=== PATIENT | male | born 1985 | race Caucasian/White ===

== ENCOUNTER 2018-10-21 17:54 | Inpatient (IN) | payer MEDICAID ==
[~2018-10-21] VITALS: Ht 165.1 cm; Wt 78.8 kg
[2018-10-21] MEDS ORDERED: SOD CHLORIDE 0.9% 1,000 ML IV STA (18:36)
[2018-10-21] MEDS ORDERED: LORAZEPAM 2 MG INJ IV STA (18:36)
[2018-10-21] MEDS ORDERED: LORAZEPAM 2 MG INJ IV ONE ×2 (21:00→22:30)
[2018-10-21] MEDS ORDERED: CHLORDIAZEPOXIDE 25 MG CAP PO ONE (22:30)
[2018-10-21] MEDS ORDERED: ONDANSETRON 4 MG INJ IV PRN ×2 (23:00→23:30)
[2018-10-21] MEDS ORDERED: ACETAMINOPHEN 325 MG TAB PO PRN ×2 (23:00→23:30)
[2018-10-21] MEDS ORDERED: DOCUSATE SODIUM 100 MG CAP PO PRN (23:30)
[2018-10-21] MEDS ORDERED: NACL 0.9% 3 ML SYG IV SCH (23:30)
[2018-10-21] MEDS ORDERED: LORAZEPAM 2 MG INJ IV PRN (23:30)
[2018-10-21] MEDS ORDERED: BISACODYL (EC) 5 MG TAB PO PRN (23:30)
--- NOTE | 2018-10-21 23:53 | HP ---
Date/Time of Note Date/Time of Note DATE: 10/21/18 TIME: 23:53 Assessment/Plan VTE Prophylaxis SCD applied (from Ns): Yes Pharmacological prophylaxis: NA/contraindicated Pharm contraindication: low risk/ambulating Assessment/Plan Hospital Course This is a 33-year-old male being admitted to the ICU floor for: #1 suspect delirium with alcoholic hallucinosis: While patient's vital signs are stable, the suspicion at the current time is that the patient is experiencing hallucinations and symptoms of alcohol withdrawal. There is no reported psychiatric history. CT scan of the head without contrast will be ordered once the patient is stabilized/calm down. In the meantime we will continue treating with diazepam 3 mg IV every 2 hours. Librium taper. Banana bag daily. Urine drug screen and ethanol level were negative. Given that the patient is requiring close observation as well as frequent benzodiazepine administration the patient will be admitted to the ICU in the meantime. #2 transaminitis: Likely secondary to underlying alcohol use. Once patient is more stable we will need to obtain a right upper quadrant ultrasound, I will defer this to the day team. #3 DVT GI prophylaxis: SCDs, Protonix Further treatment strategy will be implemented as per the clinical course Greater than 45 minutes of critical care time was spent on the care and management of this patient. Result Diagram: 10/21/18 1830 10/21/18 1830 Results 24hrs Laboratory Tests Test 10/21/18 18:00 10/21/18 18:30 10/21/18 18:53 Creatine Kinase 918 H Creatine Kinase Index 0.4 Creatinine Kinase MB (Mass) 3.40 H Troponin I 0.013 White Blood Count 5.4 Red Blood Count 4.10 L Hemoglobin 13.4 L Hematocrit 40.2 L Mean Corpuscular Volume 98.0 Mean Corpuscular Hemoglobin 32.7 Mean Corpuscular 33.3 Hemoglobin Concent Red Cell Distribution Width 13.5 Platelet Count 106 L Mean Platelet Volume 10.5 H Immature Granulocytes % 0.200 Neutrophils % Segmented Neutrophils 54 % (Manual) Band Neutrophils % (Manual) 3 Lymphocytes % Lymphocytes % (Manual) 32 Monocytes % Monocytes % (Manual) 9 Eosinophils % Eosinophils % (Manual) 1 Basophils % Promyelocytes % (Manual) 1 H Nucleated Red Blood Cells % 1 H Immature Granulocytes # 0.010 Neutrophils # Neutrophils # (Manual) 2.9 Band Neutrophils # 0.1 Lymphocytes (Manual) 1.7 Lymphocytes # Monocytes # Monocytes # (Manual) 0.4 Eosinophils # Basophils # Promyelocytes # 0.0 Nucleated Red Blood Cells # Platelet Estimate DECREASED Giant Platelets 1 H Polychromasia 1+ Urine Color JOSIAH Urine Clarity SLIGHTLY CLOUDY A Urine pH 5.0 Urine Specific [place] 1.034 H Urine Ketones TRACE A Urine Nitrite NEGATIVE Urine Bilirubin NEGATIVE Urine Urobilinogen 2+ H Urine Leukocyte Esterase NEGATIVE Urine Microscopic RBC 1 Urine Microscopic WBC 2 Urine Bacteria FEW A Urine Mucus MANY A Urine Hemoglobin NEGATIVE Urine Glucose NEGATIVE Urine Total Protein 2+ H Sodium Level 142 Potassium Level 3.5 Chloride Level 103 Carbon Dioxide Level 25 Anion Gap 14 H Blood Urea Nitrogen 14 Creatinine 0.83 Est Glomerular Filtrat > 60 Rate mL/min Glucose Level 106 Calcium Level 9.6 Total Bilirubin 0.8 Direct Bilirubin 0.00 Indirect Bilirubin 0.8 Aspartate Amino 139 H Transf (AST/SGOT) Alanine 48 Aminotransferase (ALT/SGPT) Alkaline Phosphatase 183 H Total Protein 10.1 H Albumin 4.7 Globulin 5.40 H Albumin/Globulin Ratio 0.87 Urine Opiates Screen Negative Urine Barbiturates Negative Urine Amphetamines Screen Negative Urine Benzodiazepines Screen Negative Urine Cocaine Screen Negative Urine Cannabinoids Negative Ethyl Alcohol Level < 10.0 H Bedside Glucose 107 HPI/ROS Admit Date/Time Admit Date/Time Hx of Present Illness Chief complaint: Brought in by family with complaints of hallucinations, heavy alcohol drinker with lasting 7 days ago History was obtained from the ED physician as well as the family at the bedside as the patient was delirious and confused and unable to provide history This is a 33-year-old male with a history of alcoholism brought in by family for hallucinations. As per the family at the bedside the patient was reportedly having problems with his at home secondary to his alcoholism and she wanted him to stop drinking in order to help save the relationship. He last drank approximately 7 days ago.. Early yesterday he started having hallucinations and he was shaky all week long. At home apparently he was having hallucinations that he had bugs on him and he kept taking showers to clean himself. Patient was not reporting any chest pain or nausea vomiting or any headaches. Upon my examination of the patient at the bedside he did not appear to be in any respiratory distress. His vital signs were stable. Patient however was confused and trying to get out of bed. He was not diaphoretic. He did appear to be hallucinating as well. He did receive a total of 3 mg of Ativan prior to me seeing the patient. 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 Patient was given another dose of Ativan as well as Haldol which only for short period of time relieve some of his agitation. He was given 5 mg of IV diazepam which did subsequently result in sedation. Allergies: NKDA Medications: See MAR ROS Subjective hx not possible: other (Delirium) PMH/Family/Social Past Medical History Alcohol abuse Medications Current Medications Ondansetron HCl (Zofran Inj) 4 mg ER BRIDGE PRN IV NAUSEA/VOMITING; Start 10/21/18 at 23:00; Stop 10/22/18 at 22:59 Acetaminophen (Tylenol Tab) 650 mg ER BRIDGE PRN PO .MILD PAIN 1-3 OR TEMP; Start 10/21/18 at 23:00; Stop 10/22/18 at 22:59 Multivitamins 10 ml/Thiamine HCl 100 mg/Folic Acid 1 mg/Sodium Chloride 1,011.2 ml @ 125 mls/ hr DAILY@09 IVPB ; Start 10/22/18 at 09:00 IV Flush (NS 3 ml) 3 ml PER PROTOCOL IV ; Start 10/21/18 at 23:30 Ondansetron HCl (Zofran Inj) 4 mg Q6H PRN IV NAUSEA/VOMITING; Start 10/21/18 at 23:30 Acetaminophen (Tylenol Tab) 650 mg Q6H PRN PO .PAIN 1-3 OR TEMP; Start 10/21/18 at 23:30 Docusate Sodium (Colace) 100 mg Q12H PRN PO .CONSTIPATION; Start 10/21/18 at 23:30 Bisacodyl (Dulcolax) 5 mg DAILY PRN PO .CONSTIPATION; Start 10/21/18 at 23:30 Lorazepam (Ativan) 2 mg ONCE ONCE IV ; Start 10/22/18 at 00:00; Stop 10/22/18 at 00:01 Haloperidol (Haldol) 5 mg ONCE ONCE IM ; Start 10/22/18 at 00:00; Stop 10/22/18 at 00:01 Coded Allergies: No Known Allergy (Unverified , 10/22/18) Past Surgical History Left arm surgery Family History Significant Family History: no pertinent family hx Social History Alcohol Use: heavy Smoking Status: Unknown if ever smoked Drug Use: none Exam/Review of Systems Vital Signs Vitals Vital Signs Date Temp Pulse Resp B/P (MAP) Pulse Ox O2 O2 Flow FiO2 Time Delivery Rate 10/21/18 98.7 76 18 133/92 98 Room Air 22:00 (106) Exam Exam General: Patient noted to be agitated and restless in bed. He repeatedly tried to get out of bed. He does appear to be confused and having hallucinations HEENT: Atraumatic, normocephalic. The pupils are equal, round and reactive. Extraocular motor are intact Neck: Supple with full range of motion. No rigidity or meningismus Chest: Nontender Lungs: Clear to auscultation bilaterally no crackles rales or wheezing Heart: Normal S1-S2, Regular rhythm and rate. Abdomen: Soft , nontender, nondistended , bowel sounds are present. No guarding no rebound tenderness , No masses or organomegaly. No costovertebral temporal angle mass Extremities: Normal to inspection, no edema no cyanosis Neurologic: Delirious, he does go in and out of lucidity. Psych: Tremors, agitation, hallucinations. DENNIS MACEDO Oct 21, 2018 23:53
[2018-10-22] VITALS (12 sets, daily range): BP systolic 107–134; BP diastolic 62–80; PULSE 44–98; RESP 15–18; Ht 165.1 cm; Wt 78.8 kg
[2018-10-22] MEDS ORDERED: HALOPERIDOL 5 MG INJ IM ONE
[2018-10-22] MEDS ORDERED: LORAZEPAM 2 MG INJ IV ONE
--- NOTE | 2018-10-22 00:20 | ERD ---
ER Documentation Chief Complaint Chief Complaint LAST ETOH 7 DAYS. ETOH DAILY FOR YEARS. SHAKING AND DIAPHORETIC HPI 33-year-old male with a history of alcoholism brought in by family for hallucinations. Patient decided to stop drinking about 7 days ago. Starting yesterday he started having hallucinations and has been shaky all week. Patient does not complain of pain or any headaches. ROS All systems reviewed and are negative except as per history of present illness. Allergies Allergies: Coded Allergies: No Known Allergy (Unverified , 10/21/18) PMhx/Soc Medical and Surgical Hx: pt denies Medical Hx, pt denies Surgical Hx Hx Alcohol Use: Yes (everyday drinker, quit 1 week ago) Hx Substance Use: No Hx Tobacco Use: No Smoking Status: Unknown if ever smoked FmHx Family History: No diabetes Physical Exam Vitals Vital Signs Date Temp Pulse Resp B/P (MAP) Pulse Ox O2 O2 Flow FiO2 Time Delivery Rate 10/22/18 99.7 95 18 147/90 100 Room Air 01:37 (109) 10/21/18 98.7 76 18 133/92 98 Room Air 22:00 (106) 10/21/18 98.2 86 21 139/84 97 Room Air 19:48 (102) 10/21/18 98.8 98 24 140/83 97 18:09 (102) Physical Exam Const: No acute distress, calm, nontoxic. No diaphoresis. Head: Atraumatic Eyes: Normal Conjunctiva, PERRLA, EOMI ENT: Normal External Ears, Nose and Mouth. Neck: Full range of motion. No meningismus. Resp: Clear to auscultation bilaterally Cardio: Regular rate and rhythm, no murmurs Abd: Soft, non tender, non distended. Normal bowel sounds Skin: No petechiae or rashes Back: No midline or flank tenderness Ext: No cyanosis, or edema Neur: Awake and alert, oriented x3, cranial nerves intact, strength and sensations intact in all 4 extremities. No asterixis Psych: Normal Mood and Affect. Somewhat tremulous Result Diagram: 10/21/18 1830 10/21/18 1830 Results 24 hrs Laboratory Tests Test 10/21/18 18:00 10/21/18 18:30 10/21/18 18:53 10/22/18 00:27 Creatine Kinase 918 IU/L Creatine Kinase 0.4 Index Creatinine Kinase 3.40 ng/ml MB (Mass) Troponin I 0.013 ng/ml White Blood Count 5.4 10^3/ul Red Blood Count 4.10 10^6/ul Hemoglobin 13.4 g/dl Hematocrit 40.2 % Mean Corpuscular 98.0 fl Volume Mean Corpuscular 32.7 pg Hemoglobin Mean Corpuscular 33.3 g/dl Hemoglobin Concent Red Cell 13.5 % Distribution Width Platelet Count 106 10^3/UL Mean Platelet 10.5 fl Volume Immature 0.200 % Granulocytes % Neutrophils % % Segmented 54 % Neutrophils % (Manual) Band Neutrophils % 3 % (Manual) Lymphocytes % % Lymphocytes % 32 % (Manual) Monocytes % % Monocytes % 9 % (Manual) Eosinophils % % Eosinophils % 1 % (Manual) Basophils % % Promyelocytes % 1 % (Manual) Nucleated Red 1 % Blood Cells % Immature 0.010 10^3/ul Granulocytes # Neutrophils # 10^3/ul Neutrophils # 2.9 10^3/ul (Manual) Band Neutrophils # 0.1 10^3/ul Lymphocytes 1.7 10^3/ul (Manual) Lymphocytes # 10^3/ul Monocytes # 10^3/ul Monocytes # 0.4 10^3/ul (Manual) Eosinophils # 10^3/ul Basophils # 10^3/ul Promyelocytes # 0.0 10^3/ul Nucleated Red 10^3/ul Blood Cells # Platelet Estimate DECREASED Giant Platelets 1 % Polychromasia 1+ Urine Color JOSIAH Urine Clarity SLIGHTLY CLOUDY Urine pH 5.0 Urine Specific 1.034 [place] Urine Ketones TRACE mg/dL Urine Nitrite NEGATIVE mg/dL Urine Bilirubin NEGATIVE mg/dL Urine Urobilinogen 2+ mg/dL Urine Leukocyte NEGATIVE Jhony/ul Esterase Urine Microscopic 1 /HPF RBC Urine Microscopic 2 /HPF WBC Urine Bacteria FEW /HPF Urine Mucus MANY /HPF Urine Hemoglobin NEGATIVE mg/dL Urine Glucose NEGATIVE mg/dL Urine Total 2+ mg/dl Protein Sodium Level 142 mmol/L Potassium Level 3.5 mmol/L Chloride Level 103 mmol/L Carbon Dioxide 25 mmol/L Level Anion Gap 14 Blood Urea 14 mg/dl Nitrogen Creatinine 0.83 mg/dl Est Glomerular > 60 mL/min Filtrat Rate mL/min Glucose Level 106 mg/dl Calcium Level 9.6 mg/dl Total Bilirubin 0.8 mg/dl Direct Bilirubin 0.00 mg/dl Indirect Bilirubin 0.8 mg/dl Aspartate Amino 139 IU/L Transf (AST/SGOT) Alanine 48 IU/L Aminotransferase ( ALT/SGPT) Alkaline 183 IU/L Phosphatase Total Protein 10.1 g/dl Albumin 4.7 g/dl Globulin 5.40 g/dl Albumin/Globulin 0.87 Ratio Urine Opiates Negative Screen Urine Barbiturates Negative Urine Amphetamines Negative Screen Urine Negative Benzodiazepines Screen Urine Cocaine Negative Screen Urine Cannabinoids Negative Ethyl Alcohol < 10.0 mg/dl Level Bedside Glucose 107 mg/dL Ammonia 32 umol/l Current Medications Medications Dose Sig/[place] Start Time Status Last (Trade) Ordered Route PRN Stop Time Admin Dose Reason Admin Sodium 1,000 ml @ Q1H STAT 10/21/18 DC 10/21/18 Chloride 1,000 mls/hr IV 18:36 18:55 10/21/18 19:35 Lorazepam 1 mg ONCE STAT 10/21/18 DC 10/21/18 (Ativan) IV 18:36 19:36 10/21/18 18:37 Lorazepam 2 mg ONCE ONCE 10/21/18 DC 10/21/18 (Ativan) IV 21:00 20:35 10/21/18 21:01 100 mg ONCE ONCE 10/21/18 DC 10/21/18 Chlordiazepox PO 22:30 23:01 surekha 10/21/18 22:39 (Librium) Lorazepam 2 mg ONCE ONCE 10/21/18 DC 10/21/18 (Ativan) IV 22:30 23:01 10/21/18 22:39 Ondansetron 4 mg ER BRIDGE 10/21/18 HCl (Zofran PRN IV 23:00 Inj) NAUSEA/VOMITI 10/22/18 22:59 NG 650 mg ER BRIDGE 10/21/18 Acetaminophen PRN PO 23:00 (Tylenol .MILD PAIN 10/22/18 22:59 Tab) 1-3 OR TEMP Lorazepam 2 mg Q2H PRN 10/21/18 DC (Ativan) IV CONTROL 23:30 WITHDRAWAL 10/21/18 23:53 SYMPTOMS 1,011.2 ml DAILY@09 10/22/18 Multivitamins @ 125 mls/ IVPB 09:00 10 hr ml/Thiamine HCl 100 mg/Folic Acid 1 mg/Sodium Chloride IV Flush 3 ml PER 10/21/18 (NS 3 ml) PROTOCOL IV 23:30 Ondansetron 4 mg Q6H PRN 10/21/18 HCl (Zofran IV 23:30 Inj) NAUSEA/VOMITI NG 650 mg Q6H PRN 10/21/18 Acetaminophen PO .PAIN 1-3 23:30 (Tylenol OR TEMP Tab) Docusate 100 mg Q12H PRN 10/21/18 Sodium PO 23:30 (Colace) .CONSTIPATION Bisacodyl 5 mg DAILY PRN 10/21/18 (Dulcolax) PO 23:30 .CONSTIPATION Lorazepam 2 mg ONCE ONCE 10/22/18 DC 10/21/18 (Ativan) IV 00:00 23:55 10/22/18 00:01 Haloperidol 5 mg ONCE ONCE 10/22/18 DC 10/21/18 (Haldol) IM 00:00 23:55 10/22/18 00:01 Lorazepam 2 mg Q1H PRN 10/22/18 (Ativan) IV CONTROL 00:30 WITHDRAWAL SYMPTOMS 75 mg Q6H PRN 10/22/18 Chlordiazepox PO CONTROL 04:00 surekha WITHDRAWAL 10/23/18 03:59 (Librium) SYMPTOMS Diazepam 5 mg ONCE ONCE 10/22/18 DC 10/22/18 (Valium) IV 00:30 01:30 10/22/18 01:25 50 mg ONCE ONCE 10/22/18 DC Diphenhydrami IV 00:30 ne HCl 10/22/18 01:25 (Benadryl) Procedures/MDM EMERGENT LABS AND DIAGNOSTIC STUDIES: Lab Results above were reviewed and interpreted by me. CBC: Thrombocytopenia, likely secondary to liver disease from alcoholism. No significant anemia or evidence of infection CMP: Elevated AST, consistent with alcoholic liver disease. No evidence of electrolyte abnormality, renal failure, hypoglycemia, liver failure, or biliary obstruction Troponin within normal limits, not indicative of cardiac ischemia UA: no evidence of infection Urine drug screen negative EtOH negative, no evidence of intoxication 12-lead EKG was interpreted by Isaias Olivera MD: Normal Sinus Rhythm LVH Normal axis Normal intervals No acute ST or T wave changes suggestive of acute ischemia or STEMI. Initial Nursing notes reviewed. Previous Medical Records requested via the Electronic Health Record. EMERGENCY DEPARTMENT COURSE / MEDICAL DECISION MAKING: Patient is presenting with hallucinations likely secondary to alcohol withdrawal. There is no evidence of true delirium tremens on initial exam. Vitals are unremarkable with no tachycardia. He was treated with multiple doses of Ativan. Labs did not show any significant abnormalities other than findings consistent with liver disease. During his ED course, the patient did start to become more agitated and confused. He was treated with additional doses of benzodiazepines. I spoke with the admitting doctor, Dr. Dyer, who accepted the patient for admission to the ICU. He ordered a psychiatric consult as well which is still pending at the time of admission. Critical Care Time: 45 minutes Treatments/Evaluations: Close monitoring and treatment of unstable vital signs, cardiorespiratory, and neurologic status, while maintaining tight balance of fluid, respiratory, and cardiac interventions. This time includes discussing the case with the patient and the patients family. This time does not include all procedures stated elsewhere in this record. This time also includes reviewing old records, labs and radiological studies. This time includes examining and re- examining the patient. Additionally, this time also includes arranging care with admitting and consulting physicians. Departure Diagnosis: Primary Impression: Alcohol withdrawal syndrome Complication of substance-induced condition: with delirium Qualified Codes: F10.231 - Alcohol dependence with withdrawal delirium Condition: Serious PRASANTH OLIVERA MD Oct 22, 2018 00:20
[2018-10-22] MEDS ORDERED: DIPHENHYDRAMINE 50 MG INJ IV ONE (00:30)
[2018-10-22] MEDS ORDERED: LORAZEPAM 2 MG INJ IV PRN ×2 (00:30→10:30)
[2018-10-22] MEDS ORDERED: DIAZEPAM 5 MG/ML SYG IV ONE ×2 (00:30→03:00)
--- NOTE | 2018-10-22 00:52 | PSY ---
Date/Time of Note Date/Time of Note DATE: 10/22/18 TIME: 00:51 Psychiatric Subjective Eval Consent Pt consented to telemedicine: Yes Subjective Evaluation Patient location: emergency Chief Complaint: LAST ETOH 7 DAYS. ETOH DAILY FOR YEARS. SHAKING AND DIAPHORETIC Allergies: Coded Allergies: No Known Allergy (Unverified , 10/21/18) Psychiatric Objective Eval Mental Status Examination: Laboratory Results Laboratory Tests Test 10/21/18 18:00 10/21/18 18:30 10/21/18 18:53 Creatine Kinase 918 IU/L Creatine Kinase Index 0.4 Creatinine Kinase MB (Mass) 3.40 ng/ml Troponin I 0.013 ng/ml White Blood Count 5.4 10^3/ul Red Blood Count 4.10 10^6/ul Hemoglobin 13.4 g/dl Hematocrit 40.2 % Mean Corpuscular Volume 98.0 fl Mean Corpuscular Hemoglobin 32.7 pg Mean Corpuscular 33.3 g/dl Hemoglobin Concent Red Cell Distribution Width 13.5 % Platelet Count 106 10^3/UL Mean Platelet Volume 10.5 fl Immature Granulocytes % 0.200 % Neutrophils % % Segmented Neutrophils % (Manual) 54 % Band Neutrophils % (Manual) 3 % Lymphocytes % % Lymphocytes % (Manual) 32 % Monocytes % % Monocytes % (Manual) 9 % Eosinophils % % Eosinophils % (Manual) 1 % Basophils % % Promyelocytes % (Manual) 1 % Nucleated Red Blood Cells % 1 % Immature Granulocytes # 0.010 10^3/ul Neutrophils # 10^3/ul Neutrophils # (Manual) 2.9 10^3/ul Band Neutrophils # 0.1 10^3/ul Lymphocytes (Manual) 1.7 10^3/ul Lymphocytes # 10^3/ul Monocytes # 10^3/ul Monocytes # (Manual) 0.4 10^3/ul Eosinophils # 10^3/ul Basophils # 10^3/ul Promyelocytes # 0.0 10^3/ul Nucleated Red Blood Cells # 10^3/ul Platelet Estimate DECREASED Giant Platelets 1 % Polychromasia 1+ Urine Color JOSIAH Urine Clarity SLIGHTLY CLOUDY Urine pH 5.0 Urine Specific [place] 1.034 Urine Ketones TRACE mg/dL Urine Nitrite NEGATIVE mg/dL Urine Bilirubin NEGATIVE mg/dL Urine Urobilinogen 2+ mg/dL Urine Leukocyte Esterase NEGATIVE Jhony/ul Urine Microscopic RBC 1 /HPF Urine Microscopic WBC 2 /HPF Urine Bacteria FEW /HPF Urine Mucus MANY /HPF Urine Hemoglobin NEGATIVE mg/dL Urine Glucose NEGATIVE mg/dL Urine Total Protein 2+ mg/dl Sodium Level 142 mmol/L Potassium Level 3.5 mmol/L Chloride Level 103 mmol/L Carbon Dioxide Level 25 mmol/L Anion Gap 14 Blood Urea Nitrogen 14 mg/dl Creatinine 0.83 mg/dl Est Glomerular Filtrat > 60 mL/min Rate mL/min Glucose Level 106 mg/dl Calcium Level 9.6 mg/dl Total Bilirubin 0.8 mg/dl Direct Bilirubin 0.00 mg/dl Indirect Bilirubin 0.8 mg/dl Aspartate Amino Transf (AST/SGOT) 139 IU/L Alanine 48 IU/L Aminotransferase (ALT/SGPT) Alkaline Phosphatase 183 IU/L Total Protein 10.1 g/dl Albumin 4.7 g/dl Globulin 5.40 g/dl Albumin/Globulin Ratio 0.87 Urine Opiates Screen Negative Urine Barbiturates Negative Urine Amphetamines Screen Negative Urine Benzodiazepines Screen Negative Urine Cocaine Screen Negative Urine Cannabinoids Negative Ethyl Alcohol Level < 10.0 mg/dl Bedside Glucose 107 mg/dL Assessment and Plan Recommendation/Plan Discharge Disposition: Other (Medicine Inpatient) Legal Status: Voluntary Assessment Additional comments: IDENTIFYING INFORMATION: 33 year old Male patient who is currently located at the hospital and for whom psychiatric consultation was requested. SOURCES OF INFORMATION: The patient who appears to be unreliable and the medical records; the nursing staff. Brother, Ramirez, who appears to be reliable. CHIEF COMPLAINT: "[phone], Jean". HISTORY OF PRESENT ILLNESS: The patient was interviewed via telemedicine in the presence of and under the supervision of nursing staff of the hospital. The consent to conducting this interview via telemedicine was obtained by the nursing staff at the hospital. MYLES Espinoza reports that the patient presented with agitation, in the context of alcohol withdrawal. Quit drinking 7 days ago. Received Haldol and Ativan. The patient keeps repeating a number when asked about his name. Is not able to answer any questions. Brother denies the pt having prior psychiatric history, has never been taking psychiatric medications. Has no history of prior psychiatric contacts. Brother reports that the patient normally drinks 18 drinks per day, has no history of alcohol withdrawal seizures. reportedly has stopped drinking approximately 7 days ago. PAST MEDICAL HISTORY: none. CURRENT MEDICATIONS: none. ALLERGIES TO MEDICATIONS: NKDA. LABORATORY TESTS: CBC with Hb 13.4, Hct 40.2, PLTs 106, CMP with AST 139, UDS -, alcohol level Not detected. SOCIAL HISTORY: Unable to assess as the patient was not able to cooperate with the interview at this time. REVIEW OF SYSTEMS: unable to assess due to the patient not being able to cooperate. MENTAL STATUS EXAMINATION: General Appearance and Behavior: Agitated, appears to be responding to internal stimuli, uncooperative with most of the interview, distant with the current interviewer, makes poor eye contact, poorly groomed, increased psychomotor activity, no abnormal movements noted. Speech: Normal rate, regular rhythm, normal latency, normal volume, decreased amount Flow of thought: tangential, illogical, not goal-directed. Content of thought: positive for visual hallucinations, unable to assess further, Mood: unable to assess. Affect: agitated, decreased range of reactivity. Attention: normal based on the interview. Insight: poor. Judgment: poor. Memory: normal based on the interview. Sensorium: alert, unable to assess, ASSESSMENT: The patient's presentation and history are consistent with the diagnosis of unspecified delirium, alcohol use disorder. The patient presents with delirium in the context of alcohol withdrawal. the patient has no prior psychiatric history whatsoever except for alcohol use disorder as per patient's family. PLAN: - Medication management: Would recommend starting alcohol withdrawal protocol per CIWA. Would also consider administering thiamine, folic acid, multivitamin. Would start haloperidol 5 mg IM PRN severe agitation q4 hours. Would start lorazepam 2 mg IM PRN severe agitation q4 hours Will defer to the inpatient psychiatry team for other medication changes. - Labs: No other laboratory tests are needed at this time. - Psychotherapy: Provided supportive psychotherapy and psychoeducation. - Disposition: the patient will be admitted to the intensive care unit for alcohol withdrawal delirium. would place on one-to-one supervision. please reconsult psychiatry as needed. Discussed about the above plan with Dr. Olivera. ABIGAIL ROSAS MD Oct 22, 2018 00:52
[2018-10-22] MEDS ORDERED: MULTIVITAMINS 10 ML, THIAMINE 100 MG, FOLIC ACID 1 MG in SOD CHLORIDE 0.9% 1,000 ML IVPB SCH ×9 (03:30→09:00)
[2018-10-22] MEDS ORDERED: DIAZEPAM 5 MG/ML SYG IV PRN (03:30)
[2018-10-22] MEDS ORDERED: CHLORDIAZEPOXIDE 25 MG CAP PO PRN ×3 (04:00→12:00)
--- NOTE | 2018-10-22 10:34 | PN ---
Date/Time of Note Date/Time of Note DATE: 10/22/18 TIME: 10:21 Assessment/Plan VTE Prophylaxis SCD applied (from Nsg): Yes Pharmacological prophylaxis: other Assessment/Plan Hospital Course S: Patient less agitated now, less hallucinations now, received multiple doses of benzodiazepines presently on banana bag as well. Seen by telemetry psychiatrist as well while in the ER. O: VS - see below PE: General: Now less agitated and less restless in bed. HEENT: Atraumatic, normocephalic. The pupils are equal, round and reactive. Extraocular motor are intact Neck: Supple with full range of motion. No rigidity or meningismus Chest: Nontender Lungs: Clear to auscultation bilaterally no crackles rales or wheezing Heart: Normal S1-S2, Regular rhythm and rate. Abdomen: Soft , nontender, nondistended , bowel sounds are present. No guarding no rebound tenderness , No masses or organomegaly. No costovertebral temporal angle mass Extremities: Normal to inspection, no edema no cyanosis Neurologic: Less delirious, earlier he was in and out of lucidity. A/P: 33-year-old male being admitted to the ICU floor for: #1 suspect delirium with alcoholic hallucinosis: Appears to be resolving now- patient's vital signs are stable, the suspicion at the current time is that the patient is experiencing hallucinations and symptoms of alcohol withdrawal. Apparently quit drinking 1 week ago per patient. There is no reported psychiatric history. CT scan of the head without contrast did not show any acut e findings. Urine drug screen and ethanol level were negative. -For now continue Librium taper. Banana bag daily. Ativan as needed - when more awake and alert educate patient further about alcohol cessation. #2 transaminitis: Likely secondary to underlying alcohol use. Right upper quadrant ultrasound did show sludge in the gallbladder, but no signs of acute cholecystitis. -Monitor LFTs for now #3 DVT GI prophylaxis: SCDs, Protonix Further treatment strategy will be implemented as per the clinical course 45 minutes of critical care time was spent on the care and management of this patient. Result Diagram: 10/22/18 0431 10/22/18 0431 Results 24hrs Laboratory Tests Test 10/21/18 18:00 10/21/18 18:30 10/21/18 18:53 10/22/18 00:27 Creatine Kinase 918 H Creatine Kinase 0.4 Index Creatinine Kinase 3.40 H MB (Mass) Troponin I 0.013 White Blood Count 5.4 Red Blood Count 4.10 L Hemoglobin 13.4 L Hematocrit 40.2 L Mean Corpuscular 98.0 Volume Mean Corpuscular 32.7 Hemoglobin Mean Corpuscular 33.3 Hemoglobin Concen t Red Cell 13.5 Distribution Width Platelet Count 106 L Mean Platelet 10.5 H Volume Immature 0.200 Granulocytes % Neutrophils % Segmented 54 Neutrophils % (Manual) Band Neutrophils 3 % (Manual) Lymphocytes % Lymphocytes % 32 (Manual) Monocytes % Monocytes % 9 (Manual) Eosinophils % Eosinophils % 1 (Manual) Basophils % Promyelocytes % 1 H (Manual) Nucleated Red 1 H Blood Cells % Immature 0.010 Granulocytes # Neutrophils # Neutrophils # 2.9 (Manual) Band Neutrophils 0.1 # Lymphocytes 1.7 (Manual) Lymphocytes # Monocytes # Monocytes # 0.4 (Manual) Eosinophils # Basophils # Promyelocytes # 0.0 Nucleated Red Blood Cells # Platelet Estimate DECREASED Giant Platelets 1 H Polychromasia 1+ Urine Color JOSIAH Urine Clarity SLIGHTLY CLOUDY A Urine pH 5.0 Urine Specific 1.034 H [place] Urine Ketones TRACE A Urine Nitrite NEGATIVE Urine Bilirubin NEGATIVE Urine 2+ H Urobilinogen Urine Leukocyte NEGATIVE Esterase Urine Microscopic 1 RBC Urine Microscopic 2 WBC Urine Bacteria FEW A Urine Mucus MANY A Urine Hemoglobin NEGATIVE Urine Glucose NEGATIVE Urine Total 2+ H Protein Sodium Level 142 Potassium Level 3.5 Chloride Level 103 Carbon Dioxide 25 Level Anion Gap 14 H Blood Urea 14 Nitrogen Creatinine 0.83 Est Glomerular > 60 Filtrat Rate mL/min Glucose Level 106 Calcium Level 9.6 Total Bilirubin 0.8 Direct Bilirubin 0.00 Indirect 0.8 Bilirubin Aspartate Amino 139 H Transf (AST/SGOT) Alanine 48 Aminotransferase (ALT/SGPT) Alkaline 183 H Phosphatase Total Protein 10.1 H Albumin 4.7 Globulin 5.40 H Albumin/Globulin 0.87 Ratio Urine Opiates Negative Screen Urine Negative Barbiturates Urine Negative Amphetamines Screen Urine Negative Benzodiazepines Screen Urine Cocaine Negative Screen Urine Negative Cannabinoids Ethyl Alcohol < 10.0 H Level Bedside Glucose 107 Ammonia 32 H Test 10/22/18 04:31 White Blood Count 4.1 #L Red Blood Count 3.55 L Hemoglobin 11.6 L Hematocrit 35.3 L Mean Corpuscular 99.4 Volume Mean Corpuscular 32.7 Hemoglobin Mean Corpuscular 32.9 Hemoglobin Concen t Red Cell 13.5 Distribution Width Platelet Count 90 L Mean Platelet 11.5 H Volume Immature 0.500 H Granulocytes % Neutrophils % 39.5 Lymphocytes % 31.6 Monocytes % 26.5 H Eosinophils % 1.2 Basophils % 0.7 Nucleated Red 0.0 Blood Cells % Immature 0.020 Granulocytes # Neutrophils # 1.6 Lymphocytes # 1.3 Monocytes # 1.1 H Eosinophils # 0.1 Basophils # 0.0 Nucleated Red 0.0 Blood Cells # Sodium Level 145 H Potassium Level 3.6 Chloride Level 108 Carbon Dioxide 24 Level Anion Gap 13 Blood Urea 12 Nitrogen Creatinine 0.56 L Est Glomerular > 60 Filtrat Rate mL/min Glucose Level 88 Hemoglobin A1c 5.4 Calcium Level 8.4 Total Bilirubin 0.9 Direct Bilirubin 0.00 Indirect 0.9 Bilirubin Aspartate Amino 126 H Transf (AST/SGOT) Alanine 41 Aminotransferase (ALT/SGPT) Alkaline 107 Phosphatase Creatine Kinase 841 H Creatine Kinase 0.2 Index Creatinine Kinase 2.03 MB (Mass) Troponin I 0.022 Total Protein 8.3 H Albumin 3.9 Globulin 4.40 H Albumin/Globulin 0.88 Ratio Triglycerides 85 Level Cholesterol Level 136 LDL Cholesterol, 82 Calculated HDL Cholesterol 37 Cholesterol/HDL 3.6 Ratio Thyroid 3.420 Stimulating Hormone (TSH) Exam/Review of Systems Exam Vitals Vital Signs Date Temp Pulse Resp B/P (MAP) Pulse Ox O2 O2 Flow FiO2 Time Delivery Rate 10/22/18 98.9 71 17 120/92 100 Room Air 07:37 (101) Intake and Output 10/21/18 10/21/18 10/22/18 1515:00 23:00 07:00 IntakeIntake Total 1000 ml BalanceBalance 1000 ml Results Results 24hrs Laboratory Tests Test 10/21/18 18:00 10/21/18 18:30 10/21/18 18:53 10/22/18 00:27 Creatine Kinase 918 H Creatine Kinase 0.4 Index Creatinine Kinase 3.40 H MB (Mass) Troponin I 0.013 White Blood Count 5.4 Red Blood Count 4.10 L Hemoglobin 13.4 L Hematocrit 40.2 L Mean Corpuscular 98.0 Volume Mean Corpuscular 32.7 Hemoglobin Mean Corpuscular 33.3 Hemoglobin Concen t Red Cell 13.5 Distribution Width Platelet Count 106 L Mean Platelet 10.5 H Volume Immature 0.200 Granulocytes % Neutrophils % Segmented 54 Neutrophils % (Manual) Band Neutrophils 3 % (Manual) Lymphocytes % Lymphocytes % 32 (Manual) Monocytes % Monocytes % 9 (Manual) Eosinophils % Eosinophils % 1 (Manual) Basophils % Promyelocytes % 1 H (Manual) Nucleated Red 1 H Blood Cells % Immature 0.010 Granulocytes # Neutrophils # Neutrophils # 2.9 (Manual) Band Neutrophils 0.1 # Lymphocytes 1.7 (Manual) Lymphocytes # Monocytes # Monocytes # 0.4 (Manual) Eosinophils # Basophils # Promyelocytes # 0.0 Nucleated Red Blood Cells # Platelet Estimate DECREASED Giant Platelets 1 H Polychromasia 1+ Urine Color JOS[place]H Urine Clarity SLIGHTLY CLOUDY A Urine pH 5.0 Urine Specific 1.034 H [place] Urine Ketones TRACE A Urine Nitrite NEGATIVE Urine Bilirubin NEGATIVE Urine 2+ H Urobilinogen Urine Leukocyte NEGATIVE Esterase Urine Microscopic 1 RBC Urine Microscopic 2 WBC Urine Bacteria FEW A Urine Mucus MANY A Urine Hemoglobin NEGATIVE Urine Glucose NEGATIVE Urine Total 2+ H Protein Sodium Level 142 Potassium Level 3.5 Chloride Level 103 Carbon Dioxide 25 Level Anion Gap 14 H Blood Urea 14 Nitrogen Creatinine 0.83 Est Glomerular > 60 Filtrat Rate mL/min Glucose Level 106 Calcium Level 9.6 Total Bilirubin 0.8 Direct Bilirubin 0.00 Indirect 0.8 Bilirubin Aspartate Amino 139 H Transf (AST/SGOT) Alanine 48 Aminotransferase (ALT/SGPT) Alkaline 183 H Phosphatase Total Protein 10.1 H Albumin 4.7 Globulin 5.40 H Albumin/Globulin 0.87 Ratio Urine Opiates Negative Screen Urine Negative Barbiturates Urine Negative Amphetamines Screen Urine Negative Benzodiazepines Screen Urine Cocaine Negative Screen Urine Negative Cannabinoids Ethyl Alcohol < 10.0 H Level Bedside Glucose 107 Ammonia 32 H Test 10/22/18 04:31 White Blood Count 4.1 #L Red Blood Count 3.55 L Hemoglobin 11.6 L Hematocrit 35.3 L Mean Corpuscular 99.4 Volume Mean Corpuscular 32.7 Hemoglobin Mean Corpuscular 32.9 Hemoglobin Concen t Red Cell 13.5 Distribution Width Platelet Count 90 L Mean Platelet 11.5 H Volume Immature 0.500 H Granulocytes % Neutrophils % 39.5 Lymphocytes % 31.6 Monocytes % 26.5 H Eosinophils % 1.2 Basophils % 0.7 Nucleated Red 0.0 Blood Cells % Immature 0.020 Granulocytes # Neutrophils # 1.6 Lymphocytes # 1.3 Monocytes # 1.1 H Eosinophils # 0.1 Basophils # 0.0 Nucleated Red 0.0 Blood Cells # Sodium Level 145 H Potassium Level 3.6 Chloride Level 108 Carbon Dioxide 24 Level Anion Gap 13 Blood Urea 12 Nitrogen Creatinine 0.56 L Est Glomerular > 60 Filtrat Rate mL/min Glucose Level 88 Hemoglobin A1c 5.4 Calcium Level 8.4 Total Bilirubin 0.9 Direct Bilirubin 0.00 Indirect 0.9 Bilirubin Aspartate Amino 126 H Transf (AST/SGOT) Alanine 41 Aminotransferase (ALT/SGPT) Alkaline 107 Phosphatase Creatine Kinase 841 H Creatine Kinase 0.2 Index Creatinine Kinase 2.03 MB (Mass) Troponin I 0.022 Total Protein 8.3 H Albumin 3.9 Globulin 4.40 H Albumin/Globulin 0.88 Ratio Triglycerides 85 Level Cholesterol Level 136 LDL Cholesterol, 82 Calculated HDL Cholesterol 37 Cholesterol/HDL 3.6 Ratio Thyroid 3.420 Stimulating Hormone (TSH) Medications Medication Current Medications IV Flush (NS 3 ml) 3 ml PER PROTOCOL IV ; Start 10/21/18 at 23:30 Ondansetron HCl (Zofran Inj) 4 mg Q6H PRN IV NAUSEA/VOMITING; Start 10/21/18 at 23:30 Acetaminophen (Tylenol Tab) 650 mg Q6H PRN PO .PAIN 1-3 OR TEMP; Start 10/21/18 at 23:30 Docusate Sodium (Colace) 100 mg Q12H PRN PO .CONSTIPATION; Start 10/21/18 at 23:30 Bisacodyl (Dulcolax) 5 mg DAILY PRN PO .CONSTIPATION; Start 10/21/18 at 23:30 Chlordiazepoxide (Librium) 75 mg Q6H PRN PO PRN Last administered on 10/22/18at 10:01; Admin Dose 75 MG; Start 10/22/18 at 04:00 Multivitamins 10 ml/Thiamine HCl 100 mg/Folic Acid 1 mg/Sodium Chloride 1,011.2 ml @ 125 mls/ hr DAILY@09 IVPB ; Start 10/23/18 at 09:00 SISI KHALIL Oct 22, 2018 10:33
[2018-10-22] MEDS: SOD CHLORIDE 0.9% 1,000 ML IV SCH (14:36)
[2018-10-23] VITALS (8 sets, daily range): BP systolic 125–139; BP diastolic 69–80; PULSE 57–69; RESP 16–19
[2018-10-23] MEDS: SOD CHLORIDE 0.9% 1,000 ML IV SCH ×2 (00:17→12:12)
[2018-10-23] MEDS ORDERED: MULTIVITAMINS 10 ML, THIAMINE 100 MG, FOLIC ACID 1 MG in SOD CHLORIDE 0.9% 1,000 ML IVPB SCH (09:00)
--- NOTE | 2018-10-23 16:01 | DS ---
Date/Time of Note Date/Time of Note DATE: 10/23/18 TIME: 15:55 Discharge Summary Admission/Discharge Info Admit Date/Time Oct 21, 2018 at 22:49 Discharge Date/Time Discharge Diagnosis 1. Alcohol withdrawal, improved 2. Alcoholism, advise to quit 3. Thrombocytopenia, alcohol related, improving 4. Mild transaminitis, alcohol related, follow up with PCP Patient Condition: Stable Hospital Course This is a 33-year-old male with a history of alcoholism brought in by family for hallucinations. As per the family at the bedside the patient was reportedly having problems with his at home secondary to his alcoholism and she wanted him to stop drinking in order to help save the relationship. He last drank approximately 7 days ago.. Early yesterday he started having hallucinations and he was shaky all week long. At home apparently he was having hallucinations that he had bugs on him and he kept taking showers to clean himself. Patient was not reporting any chest pain or nausea vomiting or any headaches. Upon my examination of the patient at the bedside he did not appear to be in any respiratory distress. His vital signs were stable. Patient however was confused and trying to get out of bed. He was not diaphoretic. He did appear to be hallucinating as well. He did receive a total of 3 mg of Ativan prior to me seeing the patient. 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 Patient was given another dose of Ativan as well as Haldol which only for short period of time relieve some of his agitation. He was given 5 mg of IV diazepam which did subsequently result in sedation. Patient is treated with benzo(librium and ativan), IVF, and banana bag. Agitation, confusion and hallucination gradually resolved. Patient is alert, oriented, no tremors, no agitation or hallucination today. No need of ativan. He is advised to stop drinking and he will follow up with PCP in office. Home Meds No Active Prescriptions or Reported Meds Follow-up Plan PCP in one week Primary Care Provider Care Physician No Primary Pending Labs Laboratory Tests Test 10/23/18 07:52 White Blood Count 3.0 10^3/ul (4.8-10.8) Red Blood Count 3.94 10^6/ul (4.70-6.10) Hemoglobin 12.9 g/dl (14.0-18.0) Hematocrit 39.8 % (42.0-52.0) Mean Corpuscular Volume 101.0 fl (82.0-101.0) Mean Corpuscular Hemoglobin 32.7 pg (29.0-33.0) Mean Corpuscular Hemoglobin Concent 32.4 g/dl (32.0-37.0) Red Cell Distribution Width 13.4 % (11.5-14.5) Platelet Count 120 10^3/UL (140-415) Mean Platelet Volume 11.0 fl (7.4-10.4) Immature Granulocytes % 0.300 % (0.001-0.429) Neutrophils % % (39.0-77.0) Lymphocytes % % (15.0-51.0) Monocytes % % (0.0-11.0) Eosinophils % % (0.0-7.0) Basophils % % (0.0-2.0) Nucleated Red Blood Cells % 0.0 /100WBC (0.0-0.0) Immature Granulocytes # 0.010 10^3/ul (0.0-0.031) Neutrophils # 10^3/ul (1.6-7.5) Lymphocytes # 10^3/ul (0.8-2.9) Monocytes # 10^3/ul (0.3-0.9) Eosinophils # 10^3/ul (0.0-0.5) Basophils # 10^3/ul (0.0-0.1) Nucleated Red Blood Cells # 10^3/ul (0.0-0.0) Sodium Level 142 mmol/L (135-144) Potassium Level 3.6 mmol/L (3.5-5.1) Chloride Level 104 mmol/L (97-110) Carbon Dioxide Level 25 mmol/L (21-31) Anion Gap 13 (5-13) Blood Urea Nitrogen 10 mg/dl (7-20) Creatinine 0.55 mg/dl (0.61-1.24) Est Glomerular Filtrat Rate mL/min > 60 mL/min (>60) Glucose Level 131 mg/dl (70-220) Calcium Level 8.9 mg/dl (8.4-10.2) Phosphorus Level 3.6 mg/dl (2.5-4.9) Magnesium Level 1.7 mg/dl (1.7-2.5) Ammonia 24 umol/l (9-30) Creatine Kinase 568 IU/L (23-200) LISA LUND MD Oct 23, 2018 16:01
[2018-10-24] MEDS ORDERED: INFLUENZA VIRUS VACCINE 0.5 ML (DISPENSING) IM* ONE (10:00)
== END 2018-10-23 18:30 | disposition home or self-care (01) | DRG 897 ==
LOC: E/R 17:54 → ICU 22:49 → EDBEDREQ 10-22 00:37 → EDBEDREQSVC 10-22 00:37 → TEL 10-22 14:29
PROVIDERS: ADMIT Family Medicine; ATTEND Internal Medicine
DX: F10.231 Alcohol dependence with withdrawal delirium (principal); D61.818 Other pancytopenia; F10.151 Alcohol abuse with alcohol-induced psychotic disorder with hallucinations
CPT/HCPCS: 36415; 70450; 76705; 80048; 80053; 80061; 80307; 81001; 82140; 82550; 82553; 82962; 83036; 83735; 84100; 84443; 84484; 85025; 93005; 96361; 96374; 96376; 97161; J1630; J2060; J3360; J3411; J7030

== ENCOUNTER 2019-03-28 20:37 | Emergency (ER) | payer MEDICAID, OTHER ==
[~2019-03-28] VITALS: Wt 86.8 kg
[~2019-03-28 20:37] MED LIST: CHLO25CA9 PO
[2019-03-28 20:57] VITALS: Wt 86.8 kg
[2019-03-28] MEDS ORDERED: CHLORDIAZEPOXIDE 25 MG CAP PO ONE (23:30)
[2019-03-29 00:16] VITALS: BP 155/89; PULSE 88; RESP 20
== END 2019-03-29 00:18 | disposition home or self-care (01) ==
LOC: E/R 20:37
DX: F10.239 Alcohol dependence with withdrawal, unspecified (principal)
CPT/HCPCS: 99283